=== PATIENT | female | born 1995 | race American Indian/Alaskan Native ===

== ENCOUNTER 2017-06-24 18:58 | Emergency (ER) | payer OTHER ==
[2017-06-24 19:41] VITALS: BP 110/62
--- NOTE | 2017-06-24 21:13 | Emergency Department Report ---
ED Back Pain/Injury HPI - General Chief Complaint: Back Pain/Injury Stated Complaint: BACK PAIN Source: patient Limitations: No Limitations - History of Present Illness Initial Comments: Patient complaining of back pain is been persisting for the past month complains of pain around right scapula with movement. Patient denies known injury, shortness of breath, cough, dyspnea on exertion, respiratory chest pain. Patient states she is currently . MD Complaint: back pain -: Gradual, week(s) Worsens With: movement ED Review of Systems ROS: Stated complaint: BACK PAIN Other details as noted in HPI Constitutional: denies: chills, fever Eyes: denies: eye pain, eye discharge, vision change ENT: denies: ear pain, throat pain Respiratory: denies: cough, orthopnea, shortness of breath, SOB with exertion, SOB at rest, stridor, wheezing Cardiovascular: denies: chest pain, palpitations Endocrine: no symptoms reported Gastrointestinal: denies: abdominal pain, nausea, diarrhea Genitourinary: denies: urgency, dysuria, discharge Musculoskeletal: back pain. denies: joint swelling, arthralgia Skin: denies: rash, lesions Neurological: denies: headache, weakness, paresthesias Psychiatric: denies: anxiety, depression Hematological/Lymphatic: denies: easy bleeding, easy bruising ED Past Medical Hx - Surgical History Additional Surgical History: hernia - Social History Smoking Status: Never Smoker Substance Use Type: None ED Physical Exam - General Limitations: No Limitations General appearance: alert, in no apparent distress - Head Head exam: Present: atraumatic, normocephalic - Eye Eye exam: Present: normal appearance - ENT ENT exam: Present: mucous membranes moist - Neck Neck exam: Present: normal inspection - Respiratory Respiratory exam: Present: normal lung sounds bilaterally. Absent: respiratory distress - Cardiovascular Cardiovascular Exam: Present: regular rate, normal rhythm. Absent: systolic murmur, diastolic murmur, rubs, gallop - GI/Abdominal GI/Abdominal exam: Present: soft, normal bowel sounds - Extremities Exam Extremities exam: Present: normal inspection - Back Exam Back exam: Present: normal inspection, paraspinal tenderness (right trapezius and scapularis muscle tenderness to palpation.). Absent: CVA tenderness (R), CVA tenderness (L), vertebral tenderness - Neurological Exam Neurological exam: Present: alert, oriented X3 - Psychiatric Psychiatric exam: Present: normal affect, normal mood - Skin Skin exam: Present: warm, dry, intact, normal color. Absent: rash ED Course Vital Signs 06/24/17 19:36 Temperature 98.2 F Pulse Rate 72 Respiratory 18 Rate Blood Pressure 110/62 ED Medical Decision Making - Medical Decision Making Patient advised that since she is currently she can only take Tylenol, as for the muscle spasm, heating packs massage range of motion will alleviate. Critical care attestation.: If time is entered above; I have spent that time in minutes in the direct care of this critically ill patient, excluding procedure time. ED Disposition Clinical Impression: Muscle spasm of back Disposition: DC-01 TO HOME OR SELFCARE Is pt being admited?: No Condition: Stable Instructions: Muscle Spasm (ED) Referrals: PRIMARY CARE, [Primary Care Provider] - 3-5 Days Forms: Work/School Release Form(ED)
== END 2017-06-24 21:35 | disposition home or self-care (01) ==
LOC: ED 18:58
DX: M62.830 Muscle spasm of back (principal)
CPT/HCPCS: 99282

== ENCOUNTER 2018-01-11 19:59 | Emergency (ER) | payer MEDICAID, OTHER | END 2018-01-11 21:00 | disposition left against medical advice (07) | LOC: ED 19:59 | DX: J11.1 Influenza due to unidentified influenza virus with other respiratory manifestations (principal); Z53.21 Procedure and treatment not carried out due to patient leaving prior to being seen by health care provider ==

== ENCOUNTER 2018-01-12 07:44 | Emergency (ER) | payer MEDICAID, OTHER ==
[2018-01-12 07:49] VITALS: BP 102/61
--- NOTE | 2018-01-12 10:01 | Emergency Department Report ---
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 denies: shortness of breath, abdominal pain, nausea, vomiting, diarrhea, dysuria, rash - Related Data Previous Rx's Medication Instructions Recorded Last Taken Type Acetaminophen [Tylenol] 650 mg PO Q6HR PRN #60 tablet 01/12/18 Unknown Rx Cephalexin [Keflex] 500 mg PO Q12HR #20 cap 01/12/18 Unknown Rx Fluticasone [Flonase] 1 spray NS QDAY #1 bottle 01/12/18 Unknown Rx Loratadine 10 mg PO DAILY #30 capsule 01/12/18 Unknown Rx Oseltamivir [Tamiflu] 75 mg PO BID #10 capsule 01/12/18 Unknown Rx Allergies Allergy/AdvReac Type Severity Reaction Status Date / Time No Known Allergies Allergy Unverified 01/12/18 07:45 ED Review of Systems ROS: Stated complaint: FLU LIKE SYMPTOMS Other details as noted in HPI Constitutional: fever ENT: throat pain, congestion Respiratory: cough. denies: shortness of breath, SOB with exertion, wheezing Cardiovascular: chest pain (wtih cough ) Endocrine: no symptoms reported Gastrointestinal: denies: abdominal pain, nausea, diarrhea Genitourinary: denies: urgency, dysuria, discharge Musculoskeletal: denies: back pain, joint swelling, arthralgia Skin: denies: rash, lesions Neurological: denies: headache, weakness, paresthesias Psychiatric: as per HPI Hematological/Lymphatic: denies: easy bleeding, easy bruising ED Past Medical Hx - Past Medical History Previous Medical History?: No - Surgical History Past Surgical History?: No Additional Surgical History: hernia - Social History Smoking Status: Never Smoker Substance Use Type: None - Medications Home Medications: Home Medications Medication Instructions Recorded Confirmed Last Taken Type Acetaminophen [Tylenol] 650 mg PO Q6HR PRN #60 tablet 01/12/18 Unknown Rx Cephalexin [Keflex] 500 mg PO Q12HR #20 cap 01/12/18 Unknown Rx Fluticasone [Flonase] 1 spray NS QDAY #1 bottle 01/12/18 Unknown Rx Loratadine 10 mg PO DAILY #30 capsule 01/12/18 Unknown Rx Oseltamivir [Tamiflu] 75 mg PO BID #10 capsule 01/12/18 Unknown Rx ED Physical Exam - General Limitations: No Limitations General appearance: alert, in no apparent distress - Head Head exam: Present: atraumatic, normocephalic - Eye Eye exam: Present: normal appearance, PERRL, EOMI Pupils: Present: normal accommodation - ENT ENT exam: Present: mucous membranes moist, TM's normal bilaterally - Expanded ENT Exam Expanded TM/Canal exam: Erythema: Right TM, Left TM Mouth exam: Absent: trismus Teeth exam: Present: normal inspection Throat exam: Positive: tonsillar erythema, tonsillomegaly, tonsillar exudate. Negative: R peritonsillar mass, L peritonsillar mass - Neck Neck exam: Present: full ROM. Absent: tenderness, meningismus, lymphadenopathy , thyromegaly - Respiratory Respiratory exam: Present: normal lung sounds bilaterally. Absent: respiratory distress, wheezes - Cardiovascular Cardiovascular Exam: Present: regular rate, normal rhythm, normal heart sounds. Absent: systolic murmur, diastolic murmur, rubs, gallop - GI/Abdominal GI/Abdominal exam: Present: soft, normal bowel sounds. Absent: distended, tenderness, guarding, rebound, rigid, organomegaly, mass, bruit, pulsatile mass , hernia - Rectal Rectal exam: Present: deferred - Extremities Exam Extremities exam: Present: normal inspection - Back Exam Back exam: Present: normal inspection, full ROM. Absent: tenderness, CVA tenderness (R), CVA tenderness (L), muscle spasm, paraspinal tenderness, vertebral tenderness, rash noted - Neurological Exam Neurological exam: Present: alert, oriented X3, CN II-XII intact, normal gait, reflexes normal - Psychiatric Psychiatric exam: Present: normal affect, normal mood - Skin Skin exam: Present: warm, dry, intact, normal color. Absent: rash ED Course Vital Signs 01/12/18 07:45 Temperature 98.5 F Pulse Rate 112 H Respiratory 18 Rate Blood Pressure 102/61 O2 Sat by Pulse 98 Oximetry ED Medical Decision Making - Medical Decision Making Patient 22-year-old female 4 months presenting with flulike symptoms 2 days after caring for daughter with positive fluid exam noted bilateral TM erythema mild pain bilateral turbinate erythema clear postnasal drip no polyps obstruction pharynx moderate erythema and mild swelling tonsillar swelling no abscess white exudate no lesions UE midline no stridor lungs clear bilaterally no wheezing patient continues to tolerate by mouth without nausea and vomiting states MAXIMUM TEMPERATURE 102 at home 98.5 oral in ed patient states took ibuprofen plan treat for pharyngitis URI Keflex by mouth Tamiflu Tylenol when necessary pain fever Flonase loratadine follow with PCP in 2-3 days followed [employer] in 2-3 days patient verbalizes understanding of discharge plan patient was DC'd home in stable condition at this time. Patient denies related symptoms Critical care attestation.: If time is entered above; I have spent that time in minutes in the direct care of this critically ill patient, excluding procedure time. ED Disposition Clinical Impression: URI (upper respiratory infection) Qualifiers: URI type: unspecified viral URI Qualified Code(s): J06.9 - Acute upper respiratory infection, unspecified Pharyngitis Qualifiers: Pharyngitis/tonsillitis etiology: unspecified etiology Qualified Code(s): J02.9 - Acute pharyngitis, unspecified Disposition: DC-01 TO HOME OR SELFCARE Is pt being admited?: No Does the pt Need Aspirin: No Condition: Good Instructions: Upper Respiratory Infection (ED), Pharyngitis (ED) Prescriptions: Acetaminophen [Tylenol] 650 mg PO Q6HR PRN #60 tablet PRN Reason: Pain Cephalexin [Keflex] 500 mg PO Q12HR #20 cap Fluticasone [Flonase] 1 spray NS QDAY #1 bottle Loratadine 10 mg PO DAILY #30 capsule Oseltamivir [Tamiflu] 75 mg PO BID #10 capsule Referrals: PRIMARY CARE, [Primary Care Provider] - 3-5 Days
== END 2018-01-12 10:32 | disposition home or self-care (01) ==
LOC: ED 07:44
DX: O99.512 Diseases of the respiratory system complicating pregnancy, second trimester (principal); J02.9 Acute pharyngitis, unspecified; Z3A.16 16 weeks gestation of pregnancy
CPT/HCPCS: 99282